=== PATIENT | female | born 1980 | race Hispanic/Latino ===

== ENCOUNTER 2025-07-12 08:14 | Emergency (ER) | payer BC ==
[~2025-07-12] VITALS: Ht 170.2 cm; Wt 86.2 kg
[2025-07-12 08:35] LABS: IMMATURE GRANULOCYTE ABSOLUTE 0.03 K/uL (0-1); NUCLEATED RED BLOOD CELLS 0.0 % (0.0-0.19); PLATELET COUNT (AUTO) 287 K/uL (130-400); RED BLOOD CELL COUNT(AUTO) 4.59 MIL/uL (4.00-5.50); RED CELL DISTRIBUTION WIDTH 12.0 % (11.0-15.5); WHITE BLOOD COUNT (AUTO) 7.7 K/uL (4.8-10.8)
--- NOTE | 2025-07-12 08:45 | EKG ---
[facility] Test Date: 2025-07-12 Test Time: 08:28:12 Pat Name: MANI WILSON Department: ED Room: Gender: F [employer]: STUDENT : 1980 Requested By: FILEMON RNE Order Number: [id number] Reading MD: Jovany Curry Measurements Intervals [place] Rate: 59 P: 27 AL: 200 QRS: 3 QRSD: 86 T: 14 QT: 405 QTc: 402 Interpretive Statements Sinus rhythm Low voltage, extremity leads No previous ECG available for comparison Electronically Signed On 07-12-2025 19:22:54 RN TELEMETRY by Jovany Curry Please click the below link to view image of tracing.
[2025-07-12 08:46] LABS: CREATININE 0.8 mg/dL (0.5-1.0); GLOMERULAR FILTR. RATE CALC 92.0 mL/min (>90); GLUCOSE,RANDOM 111.0 mg/dL (70-105); SODIUM SERUM 137.0 mmol/L (136-145); UREA NITROGEN, BLOOD 15.0 mg/dL (7-18)
[2025-07-12 08:51] LABS: ASPARTATE AMINOTRANSFERASE 20.0 U/L (10-37); CREATINE KINASE, TOTAL 131.0 U/L (21-232); TOTAL PROTEIN, SERUM 8.0 g/dL (6.0-8.3)
[2025-07-12 09:01] LABS: APPEARANCE,URINE CLEAR (CLEAR); GLUCOSE, URINE (UA) NEGATIVE (NEGATIVE); LEUKOCYTE ESTERASE ,URINE NEGATIVE Leu/uL (NEGATIVE); NITRATE,URINE NEGATIVE (NEGATIVE); OCCULT BLOOD,URINE NEGATIVE (NEGATIVE)
[2025-07-12 09:02] LABS: ADD UA MICROSCOPIC YES
[2025-07-12 09:05] LABS: SQUAMOUS EPITHELIAL CELL,UR RARE /HPF (0-2)
[2025-07-12] MEDS: 0.9%NACL 1000ML 1,000 ML IV ONE (09:05)
--- NOTE | 2025-07-12 09:53 | HMCIMG ---
EXAM: CT Abdomen and Pelvis Without IV contrast CLINICAL HISTORY: rt flank pain TECHNIQUE: Axial computed tomography images of the abdomen and pelvis without intravenous contrast. CONTRAST: No IV contrast. COMPARISON: None provided. FINDINGS: LUNG BASES: The lung bases appear clear. No pleural effusions are seen. LIVER: Unremarkable. GALLBLADDER AND BILE DUCTS: The gallbladder appears within normal limits. No radioopaque gallstones are seen. No biliary ductal dilatation is evident. PANCREAS: Unremarkable. SPLEEN: Unremarkable. ADRENAL GLANDS: Unremarkable. KIDNEYS, URETERS, AND BLADDER: The kidneys appear within normal limits. There is no hydronephrosis or hydroureter. No urinary calculi are seen. STOMACH AND BOWEL: Occasional colonic diverticulosis is seen, without evidence of diverticulitis. Unremarkable appearance of the stomach and small bowel. No evidence of bowel obstruction. No evidence suggesting enteritis or colitis. APPENDIX: No evidence of acute appendicitis on CT examination. PERITONEUM: No free fluid. No free air. LYMPH NODES: No lymphadenopathy is evident. PELVIS: The urinary bladder is minimally distended, with normal wall thickness and contour. Uterus and ovaries appear normal on CT. Surgical clips in the left adnexa. VASCULATURE: No evidence of abdominal aortic aneurysm. BONES: No aggressive appearing osseous lesion. No acute osseous pathology evident. Abdominal Wall: Umbilical hernia is noted with a defect measuring 8 mm, containing omental fat.IMPRESSION: Umbilical hernia with a defect measuring 8 mm, containing omental fat. Occasional colonic diverticulosis is seen, without evidence of diverticulitis. No acute intra-abdominal or pelvic abnormality. /Victor
[2025-07-12] MEDS ORDERED: CYCL5TAB3 PO (11:11)
--- NOTE | 2025-07-12 11:11 | ERN ---
ED Note History of Present Illness Stated Complaint: CHRONIC BACK PAIN Chief Complaint: Back Pain-No Injury Time Seen by MD: 08:19 Dictation: 45-year-old female presenting to the emergency department with acute on chronic back pain that radiates to her abdomen, past few weeks, patient denies any nausea vomiting or diarrhea no vaginal bleeding. Allergies: Coded Allergies: No Known Drug Allergies (Unverified Allergy, Unknown, 07/12/25) Past Medical History Past Medical History: Other Additional Past Medical Hx: CHRONIC BACK PAIN Surgical History: Other Surgical History Other: CYST REMOVAL FROM CHEST Review of System Dictation Constitutional: Negative for fever,chills, and weight loss Eyes: Negative for injury, pain,redness, and discharge ENT: Negative for injury,pain or swelling Cardiovascular: Negative for chest pain, palpitations, and edema Respiratory: Negative for shortness of breath, cough, and wheezing, Abdomen/GI: Per HPI Back: Per HPI Skin: Negative for rash, and discoloration Neuro: Negative for headache, weakness, numbness, tingling, and seizure Psych: Negative for suicide ideation, homicidal ideation, and hallucinations Initial Vital Sign VS Vital Signs Date Time Temp Pulse Resp B/P (MAP) Pulse Ox O2 Delivery O2 Flow Rate FiO2 07/12/25 08:18 98.2 79 18 118/65 97 Room Air 0 07/12/25 08:55 21 Physical Exam Dictation General: awake, alert, appears uncomfortable Head/Face: Normocephalic, atraumatic Eyes: PERRL, EOMI, vision at baseline ENT: oral cavity clear, TMs clear, no signs of infection Neck: Trachea midline, supple, no nuchal rigidity Cardiovascular: RRR, normal S1/S2, No MRGs, no JVD Respiratory: CTAB, no respiratory distress, No rales or wheezes Abdomen: Soft, non-tender, non-distended, normal bowel sounds, no guarding or rebound. Skin: Warm, dry, normal turgor, no rash MS/Extremity: Pulses equal, no cyanosis, neurovascular intact, FROM Neuro: COAx4, GCS 15, strength 5/5, CN 2-12 intact, normal cerebellar exam, normal gait, Psych: Normal behavior, mood, and affect normal Results (Laboratory/Radiology) Laboratory/Radiology Laboratory Tests Test 07/12/25 08:31 11/18/25 08:49 White Blood Count 7.7 K/uL (4.8-10.8) Red Blood Count 4.59 MIL/uL (4.00-5.50) Hemoglobin 13.9 g/dL (12.0-16.0) Hematocrit 40.3 % (36-48) Mean Corpuscular Volume 87.8 fL (79-99) Mean Corpuscular Hemoglobin 30.3 pg (27.0-33.0) Mean Corpuscular Hemoglobin Concent 34.5 g/dL (32.0-36.0) Red Cell Distribution Width 12.0 % (11.0-15.5) Platelet Count 287 K/uL (130-400) Mean Platelet Volume 9.3 fL (7.5-10.5) Immature Granulocyte % (Auto) 0.4 % (0-1) Neutrophils (%) (Auto) 72.0 % (40.0-77.0) Lymphocytes (%) (Auto) 19.2 % (21.0-51.0) L Monocytes (%) (Auto) 6.4 % (3.0-13.0) Eosinophils (%) (Auto) 1.4 % (0.0-8.0) Basophils (%) (Auto) 0.6 % (0.0-5.0) Neutrophils # (Auto) 5.6 K/uL (1.8-7.7) Lymphocytes # (Auto) 1.5 K/uL (1.0-4.8) Monocytes # (Auto) 0.5 K/uL (0.1-1.0) Eosinophils # (Auto) 0.11 K/uL (0.00-0.70) Basophils # (Auto) 0.05 K/uL (0.00-0.20) Absolute Immature Granulocyte (auto 0.03 K/uL (0-1) Nucleated Red Blood Cells 0.0 % (0.0-0.19) Sodium Level 137 mmol/L (136-145) Potassium Level 3.8 mmol/L (3.5-5.1) Chloride Level 103 mmol/L (101-111) Carbon Dioxide Level 26 mmol/L (21-32) Blood Urea Nitrogen 15 mg/dL (7-18) Creatinine 0.8 mg/dL (0.5-1.0) Glomerular Filtration Rate Calc 92 mL/min (>90) Random Glucose 111 mg/dL (70-105) H Total Calcium 8.9 mg/dL (8.5-10.1) Total Bilirubin 0.4 mg/dL (0.2-1.0) Direct Bilirubin 0.1 mg/dL (0.0-0.3) Aspartate Amino Transf (AST/SGOT) 20 U/L (10-37) Alanine Aminotransferase (ALT/SGPT) 30 U/L (12-78) Alkaline Phosphatase 106 U/L (50-136) Total Creatine Kinase 131 U/L (21-232) Troponin I High Sensitivity < 4 ng/L (4-50) L Total Protein 8.0 g/dL (6.0-8.3) Albumin 3.3 g/dL (3.5-5.0) L Urine Color YELLOW (YELLOW) Urine Appearance CLEAR (CLEAR) Urine pH 6.0 (5.0-8.0) Urine Specific Jackson 1.030 (1.001-1.031) Urine Protein NEGATIVE mg/dL (NEGATIVE) Urine Glucose (UA) NEGATIVE mg/dL (NEGATIVE) Urine Ketones 10 mg/dL (NEGATIVE) H Urine Occult Blood NEGATIVE (NEGATIVE) Urine Nitrate NEGATIVE (NEGATIVE) Urine Bilirubin NEGATIVE mg/dL (NEGATIVE) Urine Urobilinogen 0.2 mg/dL (0.2-1.0) Urine Leukocyte Esterase NEGATIVE Dg/uL Urine RBC 2-5 /HPF (0-1) H Urine WBC 2-5 /HPF (0-1) H Urine Squamous Epithelial Cells RARE /HPF (0-2) Urine Bacteria RARE /HPF (None Seen) Labs Reviewed?: Yes EKG Comment: Heart rate 59 normal sinus rhythm normal intervals no STEMI ED Course ED Course Orders Procedure Category Date Status Time 12 Lead Ekg Tracing- EKG 07/12/25 Complete Technical 08:20 Basic Metabolic Panel LAB 07/12/25 Complete 08:20 Cbc With Differential LAB 07/12/25 Complete 08:20 Hepatic Function Panel LAB 07/12/25 Complete 08:20 Creatine Kinase, Total LAB 07/12/25 Complete 08:20 Urinalysis Profile LAB 07/12/25 Complete 08:20 Troponin I High LAB 07/12/25 Complete Sensitivity 08:20 Ct Abd/Pel Wo Con CT 07/12/25 Resulted Renal/Appy 08:20 Morphine 4mg Syg PHA 07/12/25 Complete (Morphine 4mg Syg) 08:20 Ondansetron 4mg Inj PHA 07/12/25 Complete (Zofran 4mg Inj) 08:20 0.9%Nacl 1000ml (Ns PHA 07/12/25 Complete 1000ml) 08:30 Ketorolac PHA 07/12/25 Complete Tromethamine 15mg/Ml 10:09 Current Medications Medications (Trade) Dose Ordered Sig/Lyndon Route PRN Reason Start Time Stop Time Status Last Admin Dose Admin Ketorolac Tromethamine (toRADol) 15 mg ONCE STAT IV 07/12/25 10:09 07/12/25 10:12 DC Morphine Sulfate (morPHINE 4MG SYG) 4 mg ONCE STAT IVP 07/12/25 08:20 07/12/25 08:59 DC 07/12/25 09:04 Ondansetron HCl (zoFRAN 4MG INJ) 4 mg ONCE STAT IVP 07/12/25 08:20 07/12/25 08:59 DC 07/12/25 09:03 Sodium Chloride 1,000 ml @ 0 mls/hr ONCE ONCE IV 07/12/25 08:30 07/12/25 08:59 DC 07/12/25 09:05 Vital Signs Date Time Temp Pulse Resp B/P (MAP) Pulse Ox O2 Delivery O2 Flow Rate FiO2 07/12/25 10:25 98.2 68 14 112/71 97 Room Air* 0 07/12/25 08:55 97.9 79 16 114/79 96 Room Air* 0 21 07/12/25 08:18 98.2 79 18 118/65 97 Room Air 0 Medical Decision Making MDM MDM: Differential diagnosis: Rationale: Tests considered and ordered secondary to shared decision making include: Previous outside records reviewed: Old ER visits. Risk of complication and/or morbidity or mortality of patient management: None Medications-Per medication reconciliation Need for hospitalization: Patient does not meet criteria for hospitalization. Need for emergency major/minor surgery: No There are no social concerns with this patient. Prescription drug management Prescriptions will include symptomatic care Patient's prior external medical records from other ER visits were reviewed by me as indicated. Prior testing and results from previous visits were reviewed. Prior tests were taken into account with medical decision making and resource utilization, independent historian/historians were used to obtain complete medical history. I independently interpreted the test that were performed, results were reviewed by me and considered findings on radiology if ordered. Medical management and examination interpretation discussions were had by me with other qualified healthcare professionals as indicated for the patient's care. 45-year-old female with flank pain, abdominal pain, stable exam negative workup CT scan blood work and urine were clear symptoms improved with pain meds we will treat for musculoskeletal pain. DX & DISP Disposition: Discharge Departure Impression: Primary Impression: Acute back pain Condition: Stable Scripts Cyclobenzaprine HCl (Cyclobenzaprine HCl) 5 Mg Tablet 5 MG PO BID for 5 Days, #10 TAB Prov: FILEMON REN MD 07/12/25 Referrals: ANNA MERCADO DO (PCP) FILEMON REN MD Jul 12, 2025 11:11
[2025-07-12 12:53] VITALS: BP 114/68; PULSE 69; RESP 16; TEMP 98.3; O2SAT 99
== END 2025-07-12 13:09 | disposition home or self-care (01) ==
LOC: EDH 08:14
DX: G89.29 Other chronic pain (principal); M54.9 Dorsalgia, unspecified
CPT/HCPCS: 99284; 74176; 96374; 96361; 96375; 82550; 80076; 84484; 80048; 85025; 81001; 36415; 93005; J1885; J7030; J2405; J2270